=== PATIENT | male | born 1935 | race Caucasian/White ===

== ENCOUNTER 2020-10-17 05:17 | Emergency (ER) | payer MEDICARE ==
[~2020-10-17] VITALS: Ht 175.3 cm; Wt 81.6 kg
[~2020-10-17 05:17] MED LIST: BENZ0.5T43 PO; CLOP75TA2 PO; DONE5TAB33 PO; FLUT16SP24 NS; GLIP5TAB13 PO; GLU500 PO; LISI20TA30 PO; METO-540 PO; PARO30TA62 PO; SIMV20TA2 PO; TERA2CAP18 PO
[2020-10-17 05:20] VITALS: BP_SYST 215
--- NOTE | 2020-10-17 05:20 | NUR ---
Received patient to ER via ALS w/ c/o palpitations. Introduced self to patient, positioned for comfort. Bed to low position sr up, continue to monitor. placed on monitoring engineer, nsr. Patient resting quietly. No acute distress noted. Vital signs within normal range. ER Dr. Albert at bedside examining patient.
--- NOTE | 2020-10-17 05:20 | NUR ---
Placed in room 1 . Placed on teletypesetter monitor, blood pressure machine and pulse oximeter. To gown for exam. Side rails up. Report given to SHANE KNOTT.
--- NOTE | 2020-10-17 05:20 | NUR ---
EKG performed at by Mirtha. Physician given copy of EKG for review.
[2020-10-17] MEDS ORDERED: FINA5TAB3 PO (05:35)
[2020-10-17] MEDS ORDERED: CETI-250 PO (05:35)
[2020-10-17] MEDS ORDERED: LIP20 PO (05:35)
[2020-10-17] MEDS ORDERED: BUSP5TAB3 PO (05:35)
[2020-10-17] MEDS ORDERED: ISOS30TA85 PO (05:35)
[2020-10-17] MEDS ORDERED: MORP15TA60 PO (05:35)
[2020-10-17] MEDS ORDERED: ARIP10TA9 PO (05:35)
[2020-10-17] MEDS ORDERED: ATEN-41 PO (05:35)
[2020-10-17] MEDS ORDERED: TERA5CAP4 PO (05:35)
--- NOTE | 2020-10-17 05:36 | NUR ---
Medication reconciliation completed with information provided by PATIENT . Any prior medication reconciliation on file was reviewed and corrected.
--- NOTE | 2020-10-17 06:06 | NUR ---
xray at bedside
--- NOTE | 2020-10-17 06:20 | NUR ---
Blood cultures drawn, prior to administration of antibiotic. Blood for labwork drawn from [facility]. Patient tolerated procedure.
--- NOTE | 2020-10-17 07:05 | NUR ---
REPORT RECEIVED FROM HEDY MATA FOR CONTINUING CARE
[2020-10-17 07:13] LABS: BILIRUBIN,URINE NEGATIVE (NEGATIVE); BLOOD, URINE NEGATIVE (NEGATIVE); CLARITY/URINE CLEAR (CLEAR); COLOR,URINE YELLOW (YELLOW); GLUCOSE,URINE 1+ (NEGATIVE); KETONES,URINE NEGATIVE (NEGATIVE); LEUKOCYTE ESTERASE ,URINE NEGATIVE (NEGATIVE); NITRITE, URINE NEGATIVE (NEGATIVE); PROTEIN URINE NEGATIVE (NEGATIVE); UROBILINOGEN,URINE 0.2 (0.2-1.0)
--- NOTE | 2020-10-17 07:13 | NUR ---
COVID SWAB DONE AND SENT TO LAB
[2020-10-17 07:18] LABS: BASOPHILS % (AUTO) 0.4 % (0.0-2.0); EOSINOPHILS # (AUTO) 0.1 K/uL (0.0-0.4); EOSINOPHILS % (AUTO) 1.6 % (0.0-4.0); HEMATOCRIT 37.3 % (36-54); HEMOGLOBIN 12.9 g/dL (14.0-18.0); LYMPHOCYTES # (AUTO) 1.4 K/uL (1.0-5.5); LYMPHOCYTES % (AUTO) 20.8 % (20.5-51.5); MEAN CORPUSCULAR HEMOGLOBIN 32 pg (27-31); MEAN CORPUSCULAR HGB CONC 35 % (32-36); MEAN CORPUSCULAR VOLUME 94 fL (79.0-98.0); MONOCYTES # (AUTO) 0.9 K/uL (0.0-1.0); MONOCYTES % (AUTO) 12.5 % (1.7-9.3); NEUTROPHILS # (AUTO) 4.4 K/uL (1.8-7.7); NEUTROPHILS % (AUTO) 64.7 % (40.0-70.0); PLATELET COUNT (AUTO) 177 K/uL (130-430); RED BLOOD CELL COUNT(AUTO) 3.98 MIL/uL (4.2-6.2); WHITE BLOOD COUNT (AUTO) 6.9 K/uL (4.8-10.8)
--- NOTE | 2020-10-17 07:25 | NUR ---
PT IS RESTING IN BED, NO S/SX OF DISTRESS, HYPERTENSIVE MD MADE AWARE
[2020-10-17 07:30] LABS: ANION GAP 7 (5-15); CHLORIDE 102 mmol/L (98-107); GLUCOSE 230 mg/dL (70-99); POTASSIUM 3.8 mmol/L (3.5-5.1); SODIUM SERUM 139 mmol/L (136-145); UREA NITROGEN, BLOOD 17 mg/dL (8-21)
[2020-10-17 07:31] LABS: PROTHROMBIN TIME 10.2 SECS (9.5-12.5)
[2020-10-17 07:44] LABS: ALANINE AMINOTRANSFERASE 25 U/L (12-78); ALBUMIN 3.5 g/dL (3.4-4.8); ASPARTATE AMINOTRANSFERASE 18 U/L (10-37); THYROID STIMULATING HORMONE 0.86 uIu/mL (0.36-3.74); TOTAL BILIRUBIN 0.3 mg/dL (0.0-1.0)
[2020-10-17 07:45] LABS: ALCOHOL, BLOOD < 3 mg/dL (<10)
[2020-10-17] MEDS ORDERED: ENALAPRILAT DIHYDRATE 1.25 MG/ML VIAL IVP ONE (07:45)
[2020-10-17] MEDS ORDERED: hydrALAZINE HCL 20 MG/ML VIAL IVP ONE (07:45)
--- NOTE | 2020-10-17 07:51 | NUR ---
DR MATTSON SPEAKING WITH BILLIE MANCUSO AT THIS TIME.
--- NOTE | 2020-10-17 08:31 | NUR ---
[facility] CALLED WITH TRANSFER INFORMATION, PT STATES PT IS GOING TO EMERGENCY ROOM AT [place], ACCEPT[facility] DR [facility]
--- NOTE | 2020-10-17 08:32 | NUR ---
SHERYL NUGENT @ [facility], PT TO GO TO [facility] TO BE ACCEPTED UNDER DR. LÓPEZ.
[2020-10-17] MEDS ORDERED: LORazepam 2 MG/ML VIAL IVP ONE (08:45)
--- NOTE | 2020-10-17 08:45 | NUR ---
PT CLEANED IN BED, VOIDED IN DIAPER, REMOVED AND DRY CHUCKS PLACED FOR COMFORT
[2020-10-17 09:15] LABS: BACTERIA,URINE RARE /HPF (None Seen); RBC,URINE NONE SEEN /HPF (0-3); WBC,URINE 0-3 /HPF (0-3)
--- NOTE | 2020-10-17 09:15 | NUR ---
REPORT CALLED TO HEDY GAMINO FROM [facility]
[2020-10-17 09:31] VITALS: BP_SYST 178
--- NOTE | 2020-10-17 09:32 | NUR ---
Patient to be transferred to [facility]. Is being transferred due to higher level of care. Receiving facility has accepting physician and available space. ER physician has signed transfer form. Patient or responsible green party has agreed to transfer and signed form. Patient belongings inventoried and will be sent with patient. Copy of nursing notes, lab reports, EKG, Physicians Orders and X-rays to be sent with patient. Report called to HEDY GAMINO at receiving facility. Receiving physician is DR. LÓPEZ.
== END 2020-10-17 09:32 | disposition admitted as inpatient to this hospital (09) ==
LOC: SED 05:17
DX: R00.2 Palpitations (principal); I10 Essential (primary) hypertension; E11.9 Type 2 diabetes mellitus without complications; Z79.899 Other long term (current) drug therapy; Z20.822 Contact with and (suspected) exposure to COVID-19
CPT/HCPCS: 36415; 71045; 80053; 81000; 82550; 82962; 83605; 83735; 84443; 84484; 85025; 85610; 85730; 87040; 87426; 93005; 96374; 96375; 99291; G0482; J0360; J2060